=== PATIENT | female | born 1985 | race Caucasian/White ===

== ENCOUNTER 2019-07-18 23:26 | Emergency (ER) | payer MEDICAID ==
[2019-07-18] MEDS ORDERED: ONDANSETRON HCL INJ/PF 4 MG/2 ML SDV IV ONE (23:48)
[2019-07-18] MEDS ORDERED: KETOROLAC TROMETHAMINE INJ/PF 30 MG/1 ML SDV IV ONE (23:48)
[2019-07-19 00:14] LABS: APPEARANCE,URINE CLOUDY; BILIRUBIN,URINE NEGATIVE (NEGATIVE); COLOR,URINE YELLOW; GLUCOSE, URINE NEGATIVE (NEGATIVE); KETONES,URINE NEGATIVE (NEGATIVE); PROTEIN,URINE 100 mg/dL (NEGATIVE); URINE SPECIFIC GRAVITY 1.016; UROBILINOGEN,URINE NEGATIVE mg/dL (<2.0)
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
[2019-07-19] MEDS ORDERED: HYDROCODONE/ACETAMINOPHEN 5-325 MG (6 TAB/ER DISP) PO PRN (00:47)
[2019-07-19] MEDS ORDERED: ONDANSETRON 4 MG TAB.RAPDIS PO ONE (00:47)
[2019-07-19] MEDS ORDERED: HYDROCODONE/ACETAMINOPHEN 5-325 MG TABLET PO ONE (00:47)
[2019-07-19] MEDS ORDERED: LEVOFLOXACIN 750 MG TABLET PO ONE (00:47)
[2019-07-19 01:12] VITALS: BP 115/91
== END 2019-07-19 01:11 | disposition home or self-care (01) ==
LOC: ER 23:26
DX: N12 Tubulo-interstitial nephritis, not specified as acute or chronic (principal); R31.9 Hematuria, unspecified; R30.0 Dysuria; R50.9 Fever, unspecified; R11.0 Nausea; Z88.0 Allergy status to penicillin; Z88.2 Allergy status to sulfonamides
CPT/HCPCS: 99283; 36415; 87086; 81025; 87088; 81001; 87186; S0119; J3490

== ENCOUNTER 2019-11-06 04:09 | Emergency (ER) | payer MEDICAID ==
[2019-11-06] MEDS ORDERED: HYDROCODONE/ACETAMINOPHEN 5-325 MG (6 TAB/ER DISP) PO PRN (06:22)
[2019-11-06] MEDS ORDERED: CLINDAMYCIN HCL 150 MG CAPSULE PO ONE (06:22)
--- NOTE | 2019-11-06 06:24 | ER Document Report ---
HPI - HPI Time Seen by Provider: 11/06/19 06:12 Pain Level: 4 Context: Patient is a 34 year old female who comes emergency department for chief complaint of dental pain. She states she has pain in the left upper gumline with redness and swelling. She states this is been going on for about 2 days. She states she has had dental infections in the past but not recently. She states she also is new to the area, has dental insurance, and is looking for a dentist. She denies sore throat, neck pain, fever, , or any other complaints. - REPRODUCTIVE Reproductive: DENIES: : Past Medical History - General Information source: Patient - Social History Smoking Status: Never Smoker Chew tobacco use (# tins/day): No Frequency of alcohol use: None Drug Abuse: None Lives with: Family Family History: Reviewed & Not Pertinent Patient has homicidal ideation: No Endocrine Medical History: Reports: Hx Graves' Disease Past Surgical History: Reports: Hx Section - Immunizations Hx Diphtheria, Pertussis, Tetanus Vaccination: Yes Vertical Provider Document - CONSTITUTIONAL General Appearance: WD/WN. negative: No Apparent Distress - Patient appears somewhat uncomfortable but is not in severe distress - HEENT HEENT: Atraumatic, Normocephalic, PERRLA. negative: Conjuctival Injection, Pharyngeal Exudate, Pharyngeal Tenderness, Pharyngeal Erythema, Tympanic Mem brane Red, Tympanic Membrane Bulging Mouth Diagram: 1 - Widespread dental caries but in this location there is erythema and tenderness of the gumline. I do not note any severe swelling, there is no induration or fluctuance, no abscesses noted. Otherwise unremarkable. - NECK Neck: Normal Inspection - RESPIRATORY Respiratory: Breath Sounds Normal, No Respiratory Distress - CARDIOVASCULAR Cardiovascular: Regular Rate, Regular Rhythm - GI/ABDOMEN Gastrointestinal: Abdomen Soft, Abdomen Non-Tender. negative: Abdomen Tender - BACK Back: Normal Inspection - MUSCULOSKELETAL/EXTREMETIES Musculoskeletal/Extremeties: MAEW, FROM, Non-Tender - NEURO Level of Consciousness: Awake, Alert, Appropriate Motor/Sensory: No Motor Deficit, No Sensory Deficit - DERM Integumentary: Warm, Dry, No Rash Course - Re-evaluation Re-evalutation: Patient with widespread dental caries, dental infection noted in the left upper gumline, no concerning findings otherwise, no evidence of abscess at this time. Discussed care, follow-up, return precautions. Patient states understanding and agreement. - Vital Signs Vital signs: Temp Pulse Resp BP Pulse Ox 97.4 F 66 20 138/102 H 100 11/06/19 04:13 11/06/19 04:13 11/06/19 04:13 11/06/19 04:13 11/06/19 04:13 Discharge - Discharge Clinical Impression: Pain, dental, Dental infection Condition: Stable Disposition: HOME, SELF-CARE Additional Instructions: Your evaluation is consistent with a dental infection. Take the antibiotics as prescribed to completion. Call the listed referral of below to follow-up with the dentist for additional management. Return if you worsen including severe worsening swelling or pain. Prescriptions: Clindamycin HCl [Cleocin 150 mg Capsule] 150 mg PO Q6 #56 capsule
[2019-11-06 06:42] VITALS: BP 146/96
== END 2019-11-06 06:40 | disposition home or self-care (01) ==
LOC: ER 04:09
DX: K04.7 Periapical abscess without sinus (principal)
CPT/HCPCS: 99283; J3490

== ENCOUNTER 2019-12-07 04:04 | Emergency (ER) | payer MEDICAID ==
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
[2019-12-07 06:06] VITALS: BP 141/97
--- NOTE | 2019-12-07 07:02 | EKG REPORT ---
SEVERITY:- NORMAL ECG - SINUS RHYTHM : Confirmed by: Abdiel Lee MD 07-Dec-2019 07:01:45
== END 2019-12-07 06:21 | disposition home or self-care (01) ==
LOC: ER 04:04
DX: S16.1XXA Strain of muscle, fascia and tendon at neck level, initial encounter (principal); S20.219A Contusion of unspecified front wall of thorax, initial encounter; S80.11XA Contusion of right lower leg, initial encounter; S40.212A Abrasion of left shoulder, initial encounter; V43.52XA Car driver injured in collision with other type car in traffic accident, initial encounter; Y93.89 Activity, other specified; R55 Syncope and collapse; F17.200 Nicotine dependence, unspecified, uncomplicated; Z88.0 Allergy status to penicillin; Z88.2 Allergy status to sulfonamides
CPT/HCPCS: 70450; 71250; 72125; 93005; 93010; 99284